=== PATIENT | female | born 1980 | race Caucasian/White ===

== ENCOUNTER 2017-12-02 11:57 | Emergency (ER) | payer OTHER, BC ==
[~2017-12-02] VITALS: Ht 172.7 cm; Wt 135.2 kg
[~2017-12-02 11:57] MED LIST: ALPR.5 PO; Adipex-P37.5 M1 PO; BUSP10 PO; CIPR500 PO; CODBUTACEC PO; CYCL10 PO; DIAZ5 PO; DICL75ER PO; ESCI20 PO; Esgic Tablet1 EACH PO; Estradiol Tran1 EAC1 TOP; GABA300 PO; HYDACE10B; HYDACE10B PO; HYDACE5 PO; HYDACE7.5 PO; HYDCOR10 PO; HYOS.125 SL; IBUP600 PO; IBUP800 PO; KETO10 PO; LEVSOD50 PO; LORA.5 PO; LORA1 PO; METO10 PO; MULTIVITAMIN; Maxalt5 MG; NAPR500 PO; NAPR550 PO; Norco 10-325 T1 EACH PO; OMEP20ER PO; ONDA4 PO; OXCA300 PO; OXYACE5T PO; PHENA100 PO; PHENTERAMINE PO; PROM25; PROM25 PO; PROP10 PO; Percocet 7.5-31 EACH PO; RANI150 PO; RIFA300 PO; RXCYCL10 PO; RXNAPNA550 PO; SEPTRA DS PO; SULTRIDS PO; TAMS.4ER PO; TIZANIDINE HCL4 MG PO; TOLT2 PO; TOLT4 PO; TOPI50 PO; [UNRECOGNIZED DRUG - REMARK]
[2017-12-02 13:24] LABS: BASOPHILS ABSOLUTE AUTO 0.03 K/mm3 (0.00-0.23); BASOPHILS PERCENT AUTO 1 % (0-2); EOSINOPHILS ABSOLUTE AUTO 0.13 K/mm3 (0.00-0.68); EOSINOPHILS PERCENT AUTO 2 % (0-6); Hematocrit 36.8 % (33.0-51.0); Hemoglobin 12.6 g/dL (11.5-16.0); IMMATURE GRAN ABSOLUTE AUTO 0.01 K/mm3 (0.00-0.10); IMMATURE GRAN PERCENT AUTO 0 % (0-1); LYMPHOCYTES PERCENT AUTO 40 % (21-46); MONOCYTES ABSOLUTE AUTO 0.44 K/mm3 (0.16-1.47); MONOCYTES PERCENT AUTO 8 % (4-13); Mean Corpuscular HGB 34.2 pg (26.0-34.0); Mean Corpuscular HGB Conc 34.2 g/dL (31.5-36.5); Mean Corpuscular Volume 100 fL (80-100); Mean Platelet Volume 10.4 fL (9.1-12.4); NEUTROPHILS ABSOLUTE AUTO 2.76 K/mm3 (1.96-9.15); NEUTROPHILS PERCENT AUTO 50 % (41-73); Platelet Count 234 K/mm3 (150-400); RDW Coefficient Variation 12.4 % (11.7-14.2); RDW Standard Deviation 46.1 fL (35.1-46.3); Red Blood Cell Count 3.68 M/mm3 (3.80-5.20); White Blood Cell Count 5.57 K/mm3 (4.00-11.30)
[2017-12-02 13:49] LABS: Alanine Aminotransfer (ALT/SGP 36 U/L (12-78); Albumin, Blood 3.7 g/dL (3.4-5.0); Albumin/Globulin Ratio 1.1 (0.8-1.8); Alk Phos 49 U/L (50-136); Anion Gap 8 mmol/L (6-16); Aspartate Aminotrans (AST/SGOT 30 U/L (12-37); Bilirubin, Total 0.4 mg/dL (0.1-1.0); Blood Urea Nitrogen 10 mg/dL (8-24); Bun/Creatinine Ratio 11.6 (12.0-20.0); CO2, Blood 26 mmol/L (21-32); Calcium, Blood 9.1 mg/dL (8.5-10.1); Chloride, Blood 104 mmol/L (98-108); Creatinine, Blood 0.86 mg/dL (0.40-1.00); Globulin, Blood 3.5 g/dL (2.2-4.0); Glomerular Filtration Rate >60 (60-); Glucose, Blood 114 mg/dL (70-99); Potassium, Blood 4.2 mmol/L (3.5-5.5); Sodium, Blood 138 mmol/L (136-145); Total Protein, Blood 7.2 g/dL (6.4-8.2); Troponin I <0.015 ng/mL (0.000-0.040)
[2017-12-02 13:58] LABS: Source, Urine Clean Catch
[2017-12-02 14:09] LABS: Bilirubin, Urine Neg (Neg); Blood, Urine Neg (Neg); Glucose Qualitative, Urine Neg (Neg); Ketones, Urine Neg (Neg); Leukocyte Esterase, Urine Neg (Neg); Nitrite, Urine Neg (Neg); Protein, Urine Neg (Neg); Specific Gravity, Urine 1.005 (1.003-1.022); Urobilinogen, Urine NORM (Normal)
[2017-12-02 14:24] LABS: Appearance, Urine Clear (Clear); Color, Urine Yellow (P-Yellow)
[2017-12-02 14:39] LABS: Free Thyroxine 0.82 ng/dL (0.70-1.60)
[2017-12-02 14:45] LABS: Thyroid Stimulating Hormone 3.17 uIU/mL (0.360-4.800)
== END 2017-12-02 15:23 | disposition home or self-care (01) ==
LOC: ER 11:57
PROVIDERS: Emergency Medicine
DX: R00.2 Palpitations (principal); F41.9 Anxiety disorder, unspecified; F32.9 Major depressive disorder, single episode, unspecified; Z88.8 Allergy status to other drugs, medicaments and biological substances; Z79.899 Other long term (current) drug therapy; Z87.442 Personal history of urinary calculi
CPT/HCPCS: 36415; 71046; 80053; 81003; 84439; 84443; 84484; 85025; 93005; 93010; 93225; 93226; 96374; 99285-25; J2405

== ENCOUNTER → 2017-12-10 | Outpatient (CLI) | payer OTHER, BC ==
[2017-12-16 10:12] LABS: DOPAMINE, URINE 247 ug/L (Undefined); METANEPHRINE, UR 28 ug/L (Undefined); NORMETANEPHRINE, UR 127 ug/L (Undefined)
== END | disposition home or self-care (01) ==
LOC: LAB 11:44 → LAB SHORT 11:44 → LAB FUT 12-08 14:40
PROVIDERS: Nurse Practitioner Family
DX: I10 Essential (primary) hypertension (principal)
CPT/HCPCS: 81050; 82384; 83835

== ENCOUNTER 2017-12-22 02:07 | Day surgery (SDC) | payer OTHER, BC | END 2017-12-22 22:48 | disposition home or self-care (01) | LOC: ATC 02:07 | DX: I95.89 Other hypotension (principal); R53.83 Other fatigue ==

== ENCOUNTER 2017-12-24 00:23 | Day surgery (SDC) | payer OTHER, BC ==
[2017-12-24] MEDS ORDERED: CYAN1000I IM (10:30)
[2017-12-24] MEDS ORDERED: Estradiol0.5 MG PO (10:31)
[2017-12-24] MEDS ORDERED: Alora1 EAC1 TOP (10:31)
[2017-12-24] MEDS ORDERED: GABA300 PO (10:39)
[2017-12-24] MEDS ORDERED: Hydrocodone-Ap1 EA20 PO (10:40)
[2017-12-24] MEDS ORDERED: PROG100 PO (10:41)
[2017-12-24] MEDS ORDERED: SUMA25 PO (10:43)
[2017-12-24] MEDS ORDERED: TIZANIDINE HCL2 MG PO (10:47)
== END 2017-12-24 10:08 | disposition home or self-care (01) ==
LOC: ATC 00:23
DX: I95.89 Other hypotension (principal); R53.83 Other fatigue; N95.1 Menopausal and female climacteric states; E28.39 Other primary ovarian failure; E66.01 Morbid (severe) obesity due to excess calories; Z68.42 Body mass index [BMI] 45.0-49.9, adult; I10 Essential (primary) hypertension; Z87.442 Personal history of urinary calculi; Z87.440 Personal history of urinary (tract) infections
CPT/HCPCS: 36415; 80400; 82533; 96372; J0834

== ENCOUNTER → 2018-04-29 | Outpatient (CLI) | payer OTHER, BC ==
[~2018-04-29] MED LIST changes: +Alora1 EAC1 TOP; +CYAN1000I IM; +Estradiol0.5 MG PO; +Hydrocodone-Ap1 EA20 PO; +PROG100 PO; +SUMA25 PO; +TIZANIDINE HCL2 MG PO
[2018-04-29 10:48] LABS: BASOPHILS ABSOLUTE AUTO 0.03 K/mm3 (0.00-0.23); BASOPHILS PERCENT AUTO 1 % (0-2); EOSINOPHILS ABSOLUTE AUTO 0.11 K/mm3 (0.00-0.68); EOSINOPHILS PERCENT AUTO 3 % (0-6); Hematocrit 40.1 % (33.0-51.0); IMMATURE GRAN ABSOLUTE AUTO 0.01 K/mm3 (0.00-0.10); IMMATURE GRAN PERCENT AUTO 0 % (0-1); LYMPHOCYTES ABSOLUTE AUTO 1.73 K/mm3 (0.84-5.20); LYMPHOCYTES PERCENT AUTO 39 % (21-46); MONOCYTES ABSOLUTE AUTO 0.32 K/mm3 (0.16-1.47); MONOCYTES PERCENT AUTO 7 % (4-13); Mean Corpuscular HGB 33.7 pg (26.0-34.0); Mean Corpuscular HGB Conc 34.9 g/dL (31.5-36.5); Mean Corpuscular Volume 96 fL (80-100); Mean Platelet Volume 10.4 fL (9.1-12.4); NEUTROPHILS ABSOLUTE AUTO 2.19 K/mm3 (1.96-9.15); NEUTROPHILS PERCENT AUTO 50 % (41-73); Platelet Count 259 K/mm3 (150-400); RDW Standard Deviation 42.5 fL (35.1-46.3); Red Blood Cell Count 4.16 M/mm3 (3.80-5.20); White Blood Cell Count 4.39 K/mm3 (4.00-11.30)
[2018-04-29 10:56] LABS: Alanine Aminotransfer (ALT/SGP 79 U/L (12-78); Albumin, Blood 4.2 g/dL (3.4-5.0); Albumin/Globulin Ratio 1.2 (0.8-1.8); Alk Phos 46 U/L (40-126); Anion Gap 8 mmol/L (6-16); Aspartate Aminotrans (AST/SGOT 49 U/L (12-37); Bilirubin, Total 0.3 mg/dL (0.1-1.0); Blood Urea Nitrogen 12 mg/dL (8-24); Bun/Creatinine Ratio 12.5 (12.0-20.0); CO2, Blood 30 mmol/L (21-32); Calcium, Blood 9.8 mg/dL (8.5-10.1); Chloride, Blood 101 mmol/L (98-108); Creatinine, Blood 0.96 mg/dL (0.40-1.00); Globulin, Blood 3.5 g/dL (2.2-4.0); Glomerular Filtration Rate >60 (60-); Glucose, Blood 112 mg/dL (70-99); Potassium, Blood 4.2 mmol/L (3.5-5.5); Sodium, Blood 139 mmol/L (136-145); Total Protein, Blood 7.7 g/dL (6.4-8.2)
== END | disposition home or self-care (01) ==
LOC: LAB SHORT 10:40 → LAB EV 10:40
PROVIDERS: General Practice
DX: R10.9 Unspecified abdominal pain (principal)
CPT/HCPCS: 80053; 83690; 85025

== ENCOUNTER → 2018-05-01 | Outpatient (CLI) | payer OTHER, BC ==
[2018-05-01 14:09] LABS: BASOPHILS ABSOLUTE AUTO 0.03 K/mm3 (0.00-0.23); BASOPHILS PERCENT AUTO 1 % (0-2); EOSINOPHILS ABSOLUTE AUTO 0.11 K/mm3 (0.00-0.68); EOSINOPHILS PERCENT AUTO 2 % (0-6); Hematocrit 40.7 % (33.0-51.0); Hemoglobin 13.9 g/dL (11.5-16.0); IMMATURE GRAN ABSOLUTE AUTO 0.01 K/mm3 (0.00-0.10); IMMATURE GRAN PERCENT AUTO 0 % (0-1); LYMPHOCYTES ABSOLUTE AUTO 1.55 K/mm3 (0.84-5.20); LYMPHOCYTES PERCENT AUTO 24 % (21-46); MONOCYTES ABSOLUTE AUTO 0.37 K/mm3 (0.16-1.47); MONOCYTES PERCENT AUTO 6 % (4-13); Mean Corpuscular HGB 32.9 pg (26.0-34.0); Mean Corpuscular HGB Conc 34.2 g/dL (31.5-36.5); Mean Corpuscular Volume 96 fL (80-100); NEUTROPHILS ABSOLUTE AUTO 4.35 K/mm3 (1.96-9.15); NEUTROPHILS PERCENT AUTO 68 % (41-73); Platelet Count 257 K/mm3 (150-400); RDW Coefficient Variation 12.1 % (11.7-14.2); RDW Standard Deviation 42.5 fL (35.1-46.3); Red Blood Cell Count 4.23 M/mm3 (3.80-5.20); White Blood Cell Count 6.42 K/mm3 (4.00-11.30)
[2018-05-01 14:23] LABS: Alanine Aminotransfer (ALT/SGP 80 U/L (12-78); Albumin, Blood 4.3 g/dL (3.4-5.0); Albumin/Globulin Ratio 1.2 (0.8-1.8); Alk Phos 50 U/L (40-126); Anion Gap 11 mmol/L (6-16); Aspartate Aminotrans (AST/SGOT 39 U/L (12-37); Bilirubin, Total 0.4 mg/dL (0.1-1.0); Blood Urea Nitrogen 12 mg/dL (8-24); Bun/Creatinine Ratio 12.2 (12.0-20.0); CO2, Blood 27 mmol/L (21-32); Calcium, Blood 9.5 mg/dL (8.5-10.1); Chloride, Blood 102 mmol/L (98-108); Creatinine, Blood 0.98 mg/dL (0.40-1.00); Globulin, Blood 3.5 g/dL (2.2-4.0); Glomerular Filtration Rate >60 (60-); Glucose, Blood 108 mg/dL (70-99); Potassium, Blood 3.9 mmol/L (3.5-5.5); Sodium, Blood 140 mmol/L (136-145); Total Protein, Blood 7.8 g/dL (6.4-8.2)
[2018-05-01 19:55] LABS: Adenovirus F 40/41 Not Detected (NOT DETECT); Astrovirus Not Detected (NOT DETECT); Campylobacter Sp Not Detected (NOT DETECT); Cryptosporidium Not Detected (NOT DETECT); Cyclospora Cayetanensis Not Detected (NOT DETECT); E. Coli O157 Not Detected (NOT DETECT); Entamoeba Histolytica Not Detected (NOT DETECT); Enteroaggregative E. coli-EAEC Not Detected (NOT DETECT); Enteropathogenic E. coli-EPEC Not Detected (NOT DETECT); Enterotoxigenic E. coli-ETEC Not Detected (NOT DETECT); Giardia Lamblia Not Detected (NOT DETECT); Norovirus GI/GII Not Detected (NOT DETECT); Plesiomonas Shigelloides Not Detected (NOT DETECT); Rotavirus A Not Detected (NOT DETECT); Salmonella Sp Not Detected (NOT DETECT); Sapovirus Not Detected (NOT DETECT); Shiga Toxin-prod E. coli-STEC Not Detected (NOT DETECT); Shigella/Enteroin E. coli-EIEC Not Detected (NOT DETECT); Vibrio Cholerae Not Detected (NOT DETECT); Vibrio Sp Not Detected (NOT DETECT); Yersinia Enterocolitica Not Detected (NOT DETECT)
== END ==
LOC: LAB SHORT 14:00 → LAB EV 14:00
PROVIDERS: General Practice
DX: R10.9 Unspecified abdominal pain (principal)
CPT/HCPCS: 80053; 83690; 85025; 87507

== ENCOUNTER 2018-11-16 11:33 | Day surgery (SDC) | payer OTHER, BC ==
[~2018-11-16] VITALS: Ht 172.7 cm; Wt 130.4 kg
[~2018-11-16 11:33] MED LIST changes: +Daily Multiple1 EACH PO; +Estradiol1 MG PO; +FENO160 PO; +METF500 PO; +PEGANONE PO; +Prochlorperazin10 MG PO; +ZESTORETIC 20-1 EAC1 PO; +Zofran8 MG PO
--- NOTE | 2018-11-16 12:48 | NUR ---
11/16/18 1248 Michelle Clarke 1 IV MISS RH BY MA VALVE 1 IV MISS IN RAC BY MA VALVE I IV MISS IN LH BY MA VALVE 1 GOOD IV IN LAC BY [facility] PT TOW
== END 2018-11-16 14:03 | disposition home or self-care (01) ==
LOC: ORSCSDS 11:33
PROVIDERS: Internal Medicine Gastroenterology
PROC: 0DBM8ZX Excision of Descending Colon, Via Natural or Artificial Opening Endoscopic, Diagnostic (ICD-10-PCS; principal; 2018-11-16 13:00)
PROC: 0D757ZZ Dilation of Esophagus, Via Natural or Artificial Opening (ICD-10-PCS; principal; 2018-11-16 13:00)
PROC: 0DB68ZX Excision of Stomach, Via Natural or Artificial Opening Endoscopic, Diagnostic (ICD-10-PCS; principal; 2018-11-16 13:00)
DX: K21.9 Gastro-esophageal reflux disease without esophagitis (principal); R11.2 Nausea with vomiting, unspecified; R13.14 Dysphagia, pharyngoesophageal phase; K29.70 Gastritis, unspecified, without bleeding; Z12.11 Encounter for screening for malignant neoplasm of colon; Z80.0 Family history of malignant neoplasm of digestive organs; K63.5 Polyp of colon; E11.9 Type 2 diabetes mellitus without complications; I10 Essential (primary) hypertension; E66.01 Morbid (severe) obesity due to excess calories; Z68.41 Body mass index [BMI] 40.0-44.9, adult; Z79.899 Other long term (current) drug therapy
CPT/HCPCS: 82947; 87081; 88305; J2250; J2704; J7120

== ENCOUNTER 2018-12-06 09:55 | Emergency (ER) | payer OTHER, BC ==
[~2018-12-06] VITALS: Ht 175.3 cm; Wt 131.5 kg
[2018-12-06] MEDS ORDERED: TIZA4 PO (10:25)
[2018-12-06] MEDS ORDERED: Norco 10-325 T1 EACH PO (10:26)
[2018-12-06] MEDS ORDERED: FLUO10 PO (10:26)
[2018-12-06] MEDS ORDERED: Esgic Tablet1 EACH PO (10:26)
[2018-12-06 10:56] LABS: Source, Urine Clean Catch
[2018-12-06 11:01] LABS: Appearance, Urine Clear (Clear); Bilirubin, Urine Neg (Neg); Blood, Urine Neg (Neg); Color, Urine Yellow (P-Yellow); Glucose Qualitative, Urine Neg (Neg); Ketones, Urine Neg (Neg); Leukocyte Esterase, Urine Neg (Neg); Nitrite, Urine Neg (Neg); Protein, Urine Neg (Neg); Urobilinogen, Urine NORM (Normal)
[2018-12-06 11:10] LABS: BASOPHILS ABSOLUTE AUTO 0.03 K/mm3 (0.00-0.23); BASOPHILS PERCENT AUTO 1 % (0-2); EOSINOPHILS ABSOLUTE AUTO 0.14 K/mm3 (0.00-0.68); EOSINOPHILS PERCENT AUTO 3 % (0-6); Hematocrit 40.5 % (33.0-51.0); Hemoglobin 13.8 g/dL (11.5-16.0); IMMATURE GRAN ABSOLUTE AUTO 0.01 K/mm3 (0.00-0.10); IMMATURE GRAN PERCENT AUTO 0 % (0-1); LYMPHOCYTES ABSOLUTE AUTO 1.99 K/mm3 (0.84-5.20); LYMPHOCYTES PERCENT AUTO 41 % (21-46); MONOCYTES ABSOLUTE AUTO 0.32 K/mm3 (0.16-1.47); MONOCYTES PERCENT AUTO 7 % (4-13); Mean Corpuscular HGB 32.9 pg (26.0-34.0); Mean Corpuscular HGB Conc 34.1 g/dL (31.5-36.5); Mean Corpuscular Volume 97 fL (80-100); Mean Platelet Volume 10.5 fL (9.1-12.4); NEUTROPHILS ABSOLUTE AUTO 2.41 K/mm3 (1.96-9.15); NEUTROPHILS PERCENT AUTO 49 % (41-73); Platelet Count 270 K/mm3 (150-400); RDW Coefficient Variation 11.9 % (11.7-14.2); RDW Standard Deviation 42.1 fL (35.1-46.3); Red Blood Cell Count 4.19 M/mm3 (3.80-5.20)
[2018-12-06 11:14] LABS: Alanine Aminotransfer (ALT/SGP 45 U/L (12-78); Albumin, Blood 4.1 g/dL (3.4-5.0); Albumin/Globulin Ratio 1.2 (0.8-1.8); Alk Phos 58 U/L (50-136); Anion Gap 4 mmol/L (6-16); Aspartate Aminotrans (AST/SGOT 31 U/L (12-37); Bilirubin, Total 0.2 mg/dL (0.1-1.0); Blood Urea Nitrogen 13 mg/dL (8-24); Bun/Creatinine Ratio 13.4 (12.0-20.0); CO2, Blood 25 mmol/L (21-32); Calcium, Blood 9.1 mg/dL (8.5-10.1); Chloride, Blood 109 mmol/L (98-108); Creatinine, Blood 0.97 mg/dL (0.40-1.00); Globulin, Blood 3.3 g/dL (2.2-4.0); Glomerular Filtration Rate >60 (60-); Glucose, Blood 100 mg/dL (70-99); Sodium, Blood 138 mmol/L (136-145); Total Protein, Blood 7.4 g/dL (6.4-8.2)
== END 2018-12-06 13:19 | disposition home or self-care (01) ==
LOC: ER 09:55
PROVIDERS: Emergency Medicine
DX: N23 Unspecified renal colic (principal); Z87.440 Personal history of urinary (tract) infections; Z87.442 Personal history of urinary calculi; Z86.718 Personal history of other venous thrombosis and embolism; F41.9 Anxiety disorder, unspecified; F32.9 Major depressive disorder, single episode, unspecified; Z88.8 Allergy status to other drugs, medicaments and biological substances; Z79.899 Other long term (current) drug therapy
CPT/HCPCS: 36415; 74177; 80053; 81003; 83690; 85025; 96361; 96374-59; 96375; 99284-25; J2405; J3010; J7030; Q9967

== ENCOUNTER → 2019-04-21 | Outpatient (CLI) | payer OTHER, BC ==
[~2019-04-21] MED LIST changes: +FLUO10 PO; +TIZA4 PO
== END | disposition home or self-care (01) ==
LOC: LAB SHORT 13:37 → LAB 13:37
DX: Z01.818 Encounter for other preprocedural examination (principal)
CPT/HCPCS: 87070

== ENCOUNTER → 2019-05-18 | Outpatient (CLI) | payer OTHER, BC | END | disposition home or self-care (01) | LOC: LAB 12:43 → LAB SHORT 12:43 | DX: R30.9 Painful micturition, unspecified (principal) | CPT/HCPCS: 87086 ==

== ENCOUNTER 2020-03-11 11:06 | Day surgery (SDC) | payer OTHER, BC ==
[~2020-03-11] VITALS: Ht 172.7 cm; Wt 129.5 kg
[~2020-03-11 11:06] MED LIST changes: +ABAT250V; +DICLOFENAC SOD100 G1; +LISINOPRIL-HCT1 EAC1 PO; +METOPROLOL SUCC25 MG PO; +PRAZ2 PO
--- NOTE | 2020-03-11 13:35 | NUR ---
03/11/20 1335 PRANAV CONTRERAS PT UP TO RECLINER WITH SBA. PT RESTING EASILY IN RECLINER. VSS. PT MEDICATED WITH IV FENTANYL FOR PAIN, NOW REPORTING PAIN "ACHEY AND TOLERABLE".
== END 2020-03-11 13:59 | disposition home or self-care (01) ==
LOC: ORSCSDS 11:06
PROVIDERS: Podiatrist Foot & Ankle Surgery
PROC: 0QBL0ZZ Excision of Right Tarsal, Open Approach (ICD-10-PCS; principal; 2020-03-11 12:30)
PROC: 0QBN0ZZ Excision of Right Metatarsal, Open Approach (ICD-10-PCS; principal; 2020-03-11 12:30)
DX: M12.871 Other specific arthropathies, not elsewhere classified, right ankle and foot (principal); G47.33 Obstructive sleep apnea (adult) (pediatric); K21.9 Gastro-esophageal reflux disease without esophagitis; E28.2 Polycystic ovarian syndrome; E66.01 Morbid (severe) obesity due to excess calories; Z68.41 Body mass index [BMI] 40.0-44.9, adult; Z79.84 Long term (current) use of oral hypoglycemic drugs; Z79.899 Other long term (current) drug therapy
CPT/HCPCS: 82947; J0171; J0690; J1100; J1885; J2250; J2405; J2704; J2765; J3010

== ENCOUNTER → 2020-04-08 | Outpatient (CLI) | payer OTHER, BC | LOC: LAB 08:35 → LAB SHORT 08:35 | DX: R10.9 Unspecified abdominal pain (principal) | CPT/HCPCS: 87086 ==

== ENCOUNTER 2022-01-28 09:38 | Day surgery (SDC) | payer OTHER, BC ==
[~2022-01-28] VITALS: Ht 172.7 cm; Wt 118.0 kg
[2022-01-28] MEDS ORDERED: BUSPIRONE HCL5 M6 PO (10:03)
[2022-01-28] MEDS ORDERED: METFORMIN HCL500 M2 PO (10:04)
--- NOTE | 2022-01-28 11:09 | NUR ---
01/28/22 [email or web address] Shira Benoit CORRECT PT, SITE AND PROCEEDURE. PT ELECETED TO PROCEED WITH THE BLOCK. VERSED 2ML GIVEN AT 1100. VS STABLE THROUGHOUT PROCEEDURE. PT TOLERATED WELL
--- NOTE | 2022-01-28 12:05 | NUR ---
01/28/22 1205 ISH SAUNDERS PT USED BATHROOM PRIOR TO DC
== END 2022-01-28 12:05 | disposition home or self-care (01) ==
LOC: ORSCSDS 09:38
PROVIDERS: Orthopaedic Surgery
PROC: 01N54ZZ Release Median Nerve, Percutaneous Endoscopic Approach (ICD-10-PCS; principal; 2022-01-28 11:00)
DX: G56.01 Carpal tunnel syndrome, right upper limb (principal); K21.9 Gastro-esophageal reflux disease without esophagitis; E78.5 Hyperlipidemia, unspecified; E11.9 Type 2 diabetes mellitus without complications; E66.9 Obesity, unspecified; Z68.39 Body mass index [BMI] 39.0-39.9, adult; Z79.84 Long term (current) use of oral hypoglycemic drugs; Z79.899 Other long term (current) drug therapy
CPT/HCPCS: 82947; J2250; J7120

== ENCOUNTER → 2022-04-13 | Outpatient (CLI) | payer OTHER, BC ==
[~2022-04-13] MED LIST changes: +BUSPIRONE HCL5 M6 PO; +METFORMIN HCL500 M2 PO
== END | disposition home or self-care (01) ==
LOC: LAB SHORT 09:36 → LAB 09:36
DX: D48.5 Neoplasm of uncertain behavior of skin (principal)
CPT/HCPCS: 87070; 87075; 87205

== ENCOUNTER → 2023-10-15 | Outpatient (CLI) | payer OTHER, BC | LOC: LAB 12:40 → LAB SHORT 12:40 | DX: R21 Rash and other nonspecific skin eruption (principal) | CPT/HCPCS: 87070; 87205 ==

== ENCOUNTER → 2024-03-21 | Outpatient (CLI) | payer OTHER, BC | LOC: LAB 12:34 → LAB SHORT 12:34 | DX: J01.11 Acute recurrent frontal sinusitis (principal) | CPT/HCPCS: 87070 ==

== ENCOUNTER → 2024-06-23 | Outpatient (CLI) | payer OTHER, BC ==
[2024-06-23 14:42] LABS: BASOPHILS ABSOLUTE AUTO 0.02 K/mm3 (0.00-0.23); BASOPHILS PERCENT AUTO 0 % (0-2); EOSINOPHILS ABSOLUTE AUTO 0.09 K/mm3 (0.00-0.68); EOSINOPHILS PERCENT AUTO 2 % (0-6); Hematocrit 37.6 % (33.0-51.0); Hemoglobin 12.9 g/dL (11.5-16.0); IMMATURE GRAN PERCENT AUTO 0 % (0-1); LYMPHOCYTES ABSOLUTE AUTO 1.88 K/mm3 (0.84-5.20); LYMPHOCYTES PERCENT AUTO 42 % (21-46); MONOCYTES ABSOLUTE AUTO 0.36 K/mm3 (0.16-1.47); MONOCYTES PERCENT AUTO 8 % (4-13); Mean Corpuscular HGB 31.9 pg (26.0-34.0); Mean Corpuscular HGB Conc 34.3 g/dL (31.5-36.5); Mean Corpuscular Volume 93 fL (80-100); Mean Platelet Volume 10.5 fL (9.1-12.4); NEUTROPHILS ABSOLUTE AUTO 2.18 K/mm3 (1.96-9.15); NEUTROPHILS PERCENT AUTO 48 % (41-73); Platelet Count 201 K/mm3 (150-400); RDW Coefficient Variation 11.6 % (11.7-14.2); RDW Standard Deviation 39.4 fL (35.1-46.3); Red Blood Cell Count 4.04 M/mm3 (3.80-5.20); White Blood Cell Count 4.53 K/mm3 (4.00-11.30)
[2024-06-23 14:48] LABS: Bun/Creatinine Ratio 24.7 (12.0-20.0); Calcium, Blood 9.5 mg/dL (8.5-10.1); Creatinine, Blood 0.81 mg/dL (0.40-1.00)
== END ==
LOC: LAB SHORT 14:38 → LAB 14:38
PROVIDERS: Physician Assistant
DX: R10.9 Unspecified abdominal pain (principal); R82.998 Other abnormal findings in urine
CPT/HCPCS: 80048; 83690; 85025; 87086; 87147

== ENCOUNTER → 2025-01-10 | Outpatient (CLI) | payer OTHER, BC | LOC: LAB 12:29 → LAB SHORT 12:29 | DX: N63.22 Unspecified lump in the left breast, upper inner quadrant (principal) | CPT/HCPCS: 87070; 87075; 87205 ==

== ENCOUNTER → 2025-01-16 | Outpatient (CLI) | payer OTHER, BC | END | disposition home or self-care (01) | LOC: LAB SHORT 08:45 → LAB 08:45 | DX: N63.22 Unspecified lump in the left breast, upper inner quadrant (principal) | CPT/HCPCS: 87070; 87075; 87205 ==